=== PATIENT | female | born 1980 | race Caucasian/White ===

== ENCOUNTER 2016-08-26 11:25 | Emergency (ER) | payer BC ==
[~2016-08-26] VITALS: Ht 175.3 cm; Wt 127.0 kg
[~2016-08-26 11:25] MED LIST: NO MEDS
[2016-08-26 12:26] LABS: EOSINOPHIL (%) 1.1 % (0-5); EOSINOPHIL COUNT 0.1 K/uL (0-0.3); HEMATOCRIT 41.7 % (36.0-46.0); IMMATURE GRANULOCYTE (%) 0.3 % (0.0-0.7); INSTRUMENT ABS NEUTROPHIL CT 4.4 K/uL; LYMPHOCYTE COUNT 2.3 K/uL (1.0-2.8); MCH 28.2 PG (29.0-34.0); MCHC 32.4 G/DL (30.0-36.0); MCV 87.2 FL (83-99); MEAN PLAT.VOLUME 12.6 uM^3 (9.5-12.4); MONOCYTE (%) 8.3 % (3-12); MONOCYTE COUNT 0.6 K/uL (0-0.8); NEUTROPHIL (%) 58.9 % (45-76); NEUTROPHIL COUNT 4.4 K/uL (1.8-6.4); PLATELET COUNT 209 K/uL (156-360); RBC DIS.WIDTH-CV 13.7 % (11.8-14.6); RBC DIS.WIDTH-SD 43.7 % (39-53); RED BLOOD COUNT 4.78 M/uL (3.80-5.20); WHITE BLOOD COUNT 7.4 K/uL (4.1-10.2)
[2016-08-26 13:17] LABS: CHLORIDE 107 mEq/L (99-109); POTASSIUM 4.1 mEq/L (3.7-5.4); SODIUM 141 mEq/L (136-147)
[2016-08-26 13:18] LABS: GLUCOSE 88 mg/dL (70-99)
[2016-08-26 13:20] LABS: ANION GAP 6 MEQ/L (2-14)
[2016-08-26 13:22] LABS: GFR ESTIMATE (CALCULATED) > 59 mL/min/
[2016-08-26 13:23] LABS: UREA NITROGEN (BUN) 17 mg/dL (9-23)
[2016-08-26 13:26] LABS: INTER. NORMALIZED RATIO 1.1; PROTHROMBIN TIME 10.7 (9.2-11.2); PTT 33.3 (25-32)
[2016-08-26 13:27] LABS: TROP-I INTERPRETATION NEGATIVE; TROPONIN-I 0.04 ng/mL (0.0-0.30)
[2016-08-26] MEDS ORDERED: ELIQUIS5 MG PO (16:35)
[2016-08-26 16:38] VITALS: BP 116/67
== END 2016-08-26 15:53 | disposition home or self-care (01) ==
LOC: EME 11:25
PROVIDERS: Emergency Medicine
DX: R07.9 Chest pain, unspecified (principal); R00.2 Palpitations; D68.2 Hereditary deficiency of other clotting factors; Z79.01 Long term (current) use of anticoagulants; Z85.41 Personal history of malignant neoplasm of cervix uteri
CPT/HCPCS: 70450; 71010; 80048; 84484; 85025; 85379; 85610; 85730; 93005; 99281; 99285

== ENCOUNTER 2016-12-28 14:05 | Emergency (ER) | payer BC, OTHER ==
[~2016-12-28] VITALS: Ht 175.3 cm; Wt 129.4 kg
[~2016-12-28 14:05] MED LIST changes: +ELIQUIS5 MG PO
[2016-12-28 14:12] VITALS: BP 00/00
[2016-12-28 14:32] LABS: HEMATOCRIT 41.5 % (36.0-46.0); MCH 27.9 PG (29.0-34.0); MCV 84.5 FL (83-99); RBC DIS.WIDTH-CV 13.5 % (11.8-14.6); RBC DIS.WIDTH-SD 41.8 % (39-53); RED BLOOD COUNT 4.91 M/uL (3.80-5.20); WHITE BLOOD COUNT 9.7 K/uL (4.1-10.2)
[2016-12-28 15:08] LABS: ANION GAP 9 MEQ/L (2-14); CHLORIDE 105 MEQ/L (99-109); POTASSIUM 4.1 MEQ/L (3.7-5.4); SAMPLE HEMOLYSIS CHECK 0; SAMPLE ICTERIC CHECK 0; SAMPLE LIPEMIA CHECK 0; SODIUM 140 MEQ/L (136-147)
[2016-12-28 15:11] LABS: PLAT.SUFFICIENCY ADEQUATE; PLATELET CLUMPS PRESENT - PLATELET COUNT APPEARS ADQ.; PLATELET COUNT UNABLE TO REPORT K/uL (156-360)
[2016-12-28 15:13] LABS: GFR ESTIMATE (CALCULATED) > 59 mL/min/; GLUCOSE 84 mg/dL (70-99); UREA NITROGEN (BUN) 10 mg/dL (9-23)
[2016-12-28 15:39] LABS: ADD MIUA? YES; BILIRUBIN NEGATIVE; BLOOD SMALL; COLOR STRAW ((YELLOW)); GLUCOSE (STRIP) NEGATIVE; KETONES NEGATIVE; LEUKOCYTES NEGATIVE; NITRITE NEGATIVE; PROTEIN (STRIP) NEGATIVE; SPECIFIC GRAVITY 1.006 (1.000-1.030); UROBILINOGEN 0.2 MG/DL (0.2-1.0)
[2016-12-28 15:46] LABS: BACTERIA RARE /HPF; EPITHELIAL CELLS 1+ /HPF; MUCUS NONE SEEN /LPF; RED BLOOD CELLS 0-5 /HPF (0-5); UCUL ADDED? NO; WHITE BLOOD CELLS 0-5 /HPF (0-5)
[2016-12-28] MEDS ORDERED: ELIQUIS5 MG PO (16:09)
[2016-12-28 16:39] LABS: QUANTITATIVE HCG < 4.0 MIU/ML
[2016-12-28] MEDS ORDERED: FLEXERIL10 MG PO (17:52)
== END 2016-12-28 18:17 | disposition home or self-care (01) ==
LOC: EME 14:05
DX: R10.9 Unspecified abdominal pain (principal); I48.91 Unspecified atrial fibrillation; D68.51 Activated protein C resistance; Z79.01 Long term (current) use of anticoagulants; E28.2 Polycystic ovarian syndrome; Z85.41 Personal history of malignant neoplasm of cervix uteri; Z97.5 Presence of (intrauterine) contraceptive device
CPT/HCPCS: 74176; 80048; 81003; 84702; 85027; 99281; 99284

== ENCOUNTER 2017-01-09 10:13 | Emergency (ER) | payer OTHER, BC ==
[~2017-01-09] VITALS: Ht 175.3 cm; Wt 127.0 kg
[2017-01-09 10:13] VITALS: BP 137/75
[~2017-01-09 10:13] MED LIST changes: +FLEXERIL10 MG PO
[2017-01-09] MEDS ORDERED: PERCOCET 5/31 TABLET PO (11:50)
== END 2017-01-09 12:18 | disposition home or self-care (01) ==
LOC: EME 10:13
DX: S93.401A Sprain of unspecified ligament of right ankle, initial encounter (principal); W18.30XA Fall on same level, unspecified, initial encounter; X50.1XXA Overexertion from prolonged static or awkward postures, initial encounter; Y99.0 Civilian activity done for income or pay; D68.51 Activated protein C resistance; Z79.01 Long term (current) use of anticoagulants
CPT/HCPCS: 73610; 99281; 99284

== ENCOUNTER → 2017-01-27 | Outpatient (CLI) | payer BC, OTHER ==
[~2017-01-27] MED LIST changes: +PERCOCET 5/31 TABLET PO
== END | disposition home or self-care (01) ==
LOC: MRI 10:23 → RAD 11:00
DX: S92.024A Nondisplaced fracture of anterior process of right calcaneus, initial encounter for closed fracture (principal); R60.9 Edema, unspecified; S90.31XA Contusion of right foot, initial encounter; S86.191A Other injury of other muscle(s) and tendon(s) of posterior muscle group at lower leg level, right leg, initial encounter; M65.861 Other synovitis and tenosynovitis, right lower leg; R26.2 Difficulty in walking, not elsewhere classified; M25.571 Pain in right ankle and joints of right foot
CPT/HCPCS: 73721